=== PATIENT | female | born 1955 | race Caucasian/White ===

== ENCOUNTER 2017-02-26 18:12 | Emergency (ER) | payer SELFPAY ==
[2017-02-26 18:35] VITALS: BP 130/70
--- NOTE | 2017-02-26 19:10 | RAD ---
Indication: Laceration of the thumb. 3 views of left thumb demonstrates no radiopaque foreign body. No fracture is noted. Degenerative changes of the interphalangeal joint is noted. IMPRESSION: Degenerative changes of the interphalangeal joint without evidence of fracture.
[2017-02-26] MEDS ORDERED: Lidocaine 1% MPF* 2 ML VIAL INJ ONE (19:21)
[2017-02-26] MEDS ORDERED: Tetan/Diph/Pertus SYR(Tdap)* 0.5 ML SYR(BOOSTRIX) use SYR IM ONE (19:50)
--- NOTE | 2017-02-26 20:06 | UC ---
Laceration HPI - HPI Summary HPI Summary: PATIENT PRESENTS TO WITH CC OF LACERATION TO THE PROXIMAL PHALYNX OF THE LEFT THUMB ON A KNIFE AT WORK. SHE NOTES THE THUMB IS NOT ABLE TO STRAIGHTEN AND SHE CANNOT EXTEND THE THUMB. SHE DENIES NUMBNESS AND TINGLING. DENIES TEMPERATURE OR COLOR CHANGES. SHE IS FEELING PAIN AT THE BASE OF THE THUMB. SHE DENIES PREVIOUS INJURY TO THE THUMB. NOT ON BLOOD THINNERS. - History Of Current Complaint Chief Complaint: UCLaceration Stated Complaint: THUMB LAC Time Seen by Provider: 02/26/17 18:39 Hx Obtained From: Patient Laceration Location: Finger Mechanism Of Injury: Sharp Trauma Onset/Duration: Sudden Onset Severity: Moderate Pain Intensity: 2 Pain Scale Used: 0-10 Numeric Related History: Occupational Injury, Dominant Hand Right - Allergies/Home Medications Allergies/Adverse Reactions: Allergies Allergy/AdvReac Type Severity Reaction Status Date / Time ENVIRONMENTAL/SEASONAL Allergy STUFFY Uncoded 02/26/17 18:22 HAYFEVER Home Medications: Home Medications Escitalopram Oxalate [Lexapro] 15 mg PO 02/26/17 [History] PMH/Surg Hx/FS Hx/Imm Hx Previously Healthy: Yes Endocrine History Of: Denies: Diabetes, Thyroid Disease Cardiovascular History Of: Denies: Cardiac Disorders, Hypertension Respiratory History Of: Denies: COPD, Asthma GI/ History Of: Denies: Ulcer Cancer History Of: Denies: Breast Cancer - Surgical History Surgical History: Yes Surgery Procedure, Year, and Place: 1957 TONSILLECTOMY, [facility]. 1976 CHOLECYSTECTOMY, [facility]. 1975 BILATERAL TUBAL LIGATION, [facility] [place]. 1990 POLYP REMOVED FROM VOCAL CORD, [facility] - Family History Known Family History: Positive: Other - NONCONTRIBUTORY - Social History Occupation: Employed Full-time Lives: With Family Alcohol Use: Rare Substance Use Type: Marijuana Substance Use Comment - Amount & Last Used: OCCASIONALLY Smoking Status (MU): Light Every Day Tobacco Smoker Type: Cigarettes Amount Used/How Often: 1 PPD Review of Systems Constitutional: Negative Skin: Other - 1CM LACERATION TO THE PROXIMAL PHALYNX ENT: Negative Respiratory: Negative Cardiovascular: Negative Motor: Negative Neurovascular: Negative Musculoskeletal: Negative Neurological: Negative All Other Systems Reviewed And Are Negative: Yes Physical Exam Triage Information Reviewed: Yes Appearance: Well-Appearing, Well-Nourished Vital Signs: Initial Vital Signs Temp 98.1 F 02/26/17 18:26 Pulse 76 02/26/17 18:26 Resp 18 02/26/17 18:26 BP 130/70 02/26/17 18:26 Pulse Ox 96 02/26/17 18:26 Vital Signs Reviewed: Yes Eye Exam: Normal Eyes: Positive: Conjunctiva Clear Neck: Positive: Supple, Nontender, No Lymphadenopathy Respiratory Exam: Normal Respiratory: Positive: Chest non-tender, Lungs clear Cardiovascular Exam: Normal Cardiovascular: Positive: RRR Musculoskeletal: Positive: ROM Limited @ - FLEXION INTACT. PATIENT IS UNABLE TO EXTEND THE L THUMB FULLY. IT IS 15 DEGREES FLEXED ON ACTIVE EXTENSION Psychological: Positive: Normal Response To Family Laceration Repair - Laceration Repair 1 Description: Linear Laceration Size After Repair: Length (cm) - 1 Modified For Repair: No Type Injection: Local Anesthesia Used: 1.0% Lido Cleansing Completed Via Routine Prep: Yes Irrigation With Pressure Irrigation Device: Yes Closure Material: Sutures - 3 SUTURES PLACED Closure Method: Single Layer Suture Of: Skin Suture Type: Nylon Laceration Course/Dx - Course/Dx Course Of Treatment: XRAY SHOWS NO ACUTE FINDINGS. 3 SUTURES APPLIED WITH 1% LIDO WITH EPI. PATIENT TOLERATED WELL. SPLINT APPLIED TO KEEP IN FULL EXTENSION UNTIL FOLLOW UP WITH ORTHO. PATIENT AGREES TO FOLLOW UP IN 1-3 DAYS AND CONTINUE IN FULL EXTENSION. - Differential Dx - Laceration/Wound Differental Diagnoses: Joint Infection, Laceration, Tendon Laceration Provider Diagnoses: TENDON LACERATION Discharge - Discharge Plan Condition: Stable Disposition: HOME Patient Education Materials: Tendon Laceration (ED) Referrals: Rolf Davis MD [Medical Doctor] - Heriberto Dahl MD [Primary Care Provider] - Mary Turpin MD [Medical Doctor] - Additional Instructions: Follow up with ortho. Call tomorrow morning for appt Keep finger straight until follow up keep the suture wound open to air after 24 hours. You will need the sutures removed in 7 days.
== END 2017-02-26 20:00 | disposition home or self-care (01) ==
LOC: UCEAST 18:12
DX: S61.012A Laceration without foreign body of left thumb without damage to nail, initial encounter (principal); S56.322A Laceration of extensor or abductor muscles, fascia and tendons of left thumb at forearm level, initial encounter; W26.0XXA Contact with knife, initial encounter; Y93.9 Activity, unspecified; Y92.9 Unspecified place or not applicable; Y99.0 Civilian activity done for income or pay; Z23 Encounter for immunization; Z90.49 Acquired absence of other specified parts of digestive tract; F17.210 Nicotine dependence, cigarettes, uncomplicated
CPT/HCPCS: 12001; 99212; G0463

== ENCOUNTER 2017-03-08 09:45 | Day surgery (SDC) | payer OTHER ==
[~2017-03-08 09:45] MED LIST: Dexamethasone IV* 4 MG/ML 1 ML (4 MG) IV SLOW PU ONE; Famotidine IV* 10 MG/ML 2 ML (20 mg) IV ONE; Levalbuterol 0.63MG/3ML NEB INH ONE
[2017-03-08] MEDS ORDERED: ceFAZolin 2 GM PREMIX(*) 2 GM/50 ML BAG IVPB ONE (10:13)
[2017-03-08] MEDS ORDERED: Famotidine IV* 10 MG/ML 2 ML (20 mg) ONE (10:13)
[2017-03-08] MEDS ORDERED: Buffered Lidocaine 1% SYRIN* 5 ML/SYR SYRINGE ONE (10:14)
[2017-03-08] MEDS ORDERED: Dexamethasone IV* 4 MG/ML 1 ML (4 MG) ONE (10:14)
[2017-03-08] MEDS ORDERED: Levalbuterol 1.25MG/0.5ML NEB ONE (10:14)
[2017-03-08] MEDS ORDERED: DiMENhydriNATE IV* 50 MG/ML VIAL IV PUSH PRN (11:56)
[2017-03-08] MEDS ORDERED: Ondansetron INJ* 2 MG/ML VIAL IV PRN (11:56)
[2017-03-08] MEDS ORDERED: oxyCODONE/Acetamin 5/325 MG* TAB PO PRN (11:56)
[2017-03-08] MEDS ORDERED: Ondansetron INJ* 2 MG/ML VIAL ONE (11:59)
[2017-03-08] MEDS ORDERED: fentaNYL* 50 MCG/ML 2 ML VIAL (100 MCG VIAL) ONE (11:59)
[2017-03-08] MEDS ORDERED: Midazolam* 1 MG/ML 5 ML VIAL (5 MG) ONE (11:59)
[2017-03-08] MEDS ORDERED: Ketorolac INJ* 30 MG/ML 1 ML VIAL ONE (11:59)
[2017-03-08] MEDS ORDERED: Bupivacaine 0.25% SDV* 30 ML ONE (12:11)
[2017-03-08 13:44] VITALS: BP 116/53
--- NOTE | 2017-03-10 17:50 | OP ---
OPERATIVE REPORT: DATE OF OPERATION: 03/08/17 - AD[facility] DATE OF : 51 SURGEON: Rolf Davis MD. BLAST HOLE DRILLER: ABI Aquino. ANESTHESIOLOGIST: Dr. Al. ANESTHESIA: Local MAC. PRE-OP DIAGNOSIS: Left thumb zone T2 extensor tendon laceration. POST-OP DIAGNOSIS: Left thumb zone T2 extensor tendon laceration. OPERATIVE PROCEDURE: 1. Debridement of skin and subcutaneous tissue. 2. Repair of left thumb extensor tendon zone T2 laceration. 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 She sharpening the knife when she lacerated her thumb and extensor tendon. We had talked about risks and benefits. She had elected to proceed with surgery. ESTIMATED BLOOD LOSS: 2 mL. COMPLICATIONS: None. FINDINGS: As expected. DESCRIPTION OF PROCEDURE: Nancy was seen in the preoperative holding area. The correct side, site, and procedure were identified. We came back to the operating room where a time-out was performed and then I performed a digital block to the thumb with 0.25% Marcaine. She got some more anesthesia and then the arm was prepped and draped in the usual fashion and the formal time-out was performed. The arm was exsanguinated and then forearm tourniquet was inflated to 250 mmHg. I then began by extending the traumatic margin proximally radially and dorsal ulnar utilizing the obliquity of the laceration. I debrided the traumatized skin margins and some subcutaneous tissue going down to the peritenon. There was no large dorsal sensory nerves identified in the traumatized wound bed. I went ahead and located the laceration. There was significant scar tissue that had developed in between the two ends of the laceration tendon. This was all debrided back leaving only clean healthy tendon margins and healthy tendon bed. Once I had cleaned out all the scar tissue, I went ahead and irrigated out the wound. I then took 4-0 Prolene suture and began ulnarly and repaired the tendon using a Silfverskiold stitch. This opposed the tendon edges very nicely and provided a very excellent repair. There was no gapping at the fracture. I took the thumb through flexion and extension arc of motion. I decided just to take 5-0 Prolene on a taper and augment this with a couple of [id number] sutures. These were placed. Once I had done this, I was very satisfied with repair of the tendon. All the tissues were nice and clean and healthy, so I went ahead and irrigated out the wound. The skin was then closed with 5-0 nylon simple interrupted stitches. The wound was then dressed with Xeroform, 4x4s, sterile Webril and a thumb spica splint past the tip of the thumb was applied with MP and IP joints in extension. Tourniquet was deflated. The fingertip pinked up immediately. She was then taken to recovery room in stable condition. [id number]/[facility] #: [id number] AARON
== END 2017-03-08 13:44 | disposition home or self-care (01) ==
LOC: OREAST 09:45
PROVIDERS: ATTEND Orthopaedic Surgery Hand Surgery
DX: S66.222A Laceration of extensor muscle, fascia and tendon of left thumb at wrist and hand level, initial encounter (principal); F17.210 Nicotine dependence, cigarettes, uncomplicated; F41.8 Other specified anxiety disorders; W26.0XXA Contact with knife, initial encounter; Y93.89 Activity, other specified; Y92.190 Kitchen in other specified residential institution as the place of occurrence of the external cause; Y99.0 Civilian activity done for income or pay; M79.7 Fibromyalgia
CPT/HCPCS: A9270-GY; J0690; J1100; J1885; J2250; J2405; J3010

== ENCOUNTER → 2017-08-02 14:44 | Emergency (ER) | payer BC ==
[~2017-08-02 14:44] MED LIST changes: -Dexamethasone IV* 4 MG/ML 1 ML (4 MG) IV SLOW PU ONE; -Famotidine IV* 10 MG/ML 2 ML (20 mg) IV ONE; -Levalbuterol 0.63MG/3ML NEB INH ONE; +Lidocaine PATCH 5%* 1 PATCH TRANSDERM ONE; +Lidocaine PATCH 5%* 1 PATCH TRANSDERM SCH; +Lidocaine Patch REMOVE* 1 NOTE MISC SCH
[2017-08-02 15:00] VITALS: BP 140/67
--- NOTE | 2017-08-02 15:24 | ED ---
Lower Extremity - HPI Summary HPI Summary: Pt here w/ Rt hip pain x 2 weeks. Saw her PCP last week who ordered an XR. This reveals moderate arthritis and she has been referred to orthopedics for an appointment next week. She is under the impression she will be getting a steroid injection for bursitis in her hip. Pain is in her Rt hip and thigh along the lateral side and anterior aspect - leg shaking earlier today. Pain is now going up into her back. Pain is worse with lying down, better flexed at the hips but even this is uncomfortable at times. Reports almost falling earlier today due to pain on this side in hip - no weakness, numbness or tingling. Reports she has a h/o disc herniations and this feels different. 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 Denies fever, chills, nausea, vomiting, urinary sx, ab pain, skin changes. Has been taking acetaminophen and narcotic pain med w/o relief. Took 800mg ibuprofen today and feels best it has all day but still pretty bad - can't take much NSAID however as it upsets her stomach. - History of Current Complaint Chief Complaint: EDHipPelvisInjury Stated Complaint: RIGHT HIP PAIN Time Seen by Provider: 08/02/17 15:06 Hx Obtained From: Patient Pain Intensity: 10 - Allergies/Home Medications Allergies/Adverse Reactions: Allergies Allergy/AdvReac Type Severity Reaction Status Date / Time ENVIRONMENTAL/SEASONAL Allergy STUFFY Uncoded 03/06/17 12:18 HAYFEVER PMH/Surg Hx/FS Hx/Imm Hx Previously Healthy: Yes Endocrine/Hematology History: Denies: Hx Anticoagulant Therapy, Hx Blood Disorders, Hx Diabetes, Hx Thyroid Disease Cardiovascular History: Denies: Hx Hypertension Respiratory History: Reports: Hx Sleep Apnea, Other Respiratory Problems/ Disorders - left polyps vocal cord/larynx, surgery x 2 Denies: Hx Asthma, Hx Chronic Obstructive Pulmonary Disease (COPD) GI History: Reports: Hx Gastroesophageal Reflux Disease - resolved, stress reduction helped Denies: Hx Ulcer History: Reports: Hx Kidney Infection - acute pyelonephritis , Hx Kidney Stones - , one episode Musculoskeletal History: Reports: Hx Arthritis - neck and back, joints, Hx Back Problems - "disc issues" Denies: Hx Osteoporosis Sensory History: Reports: Hx Contacts or Glasses - wears reading glasses Denies: Hx Hearing Aid Opthamlomology History: Reports: Hx Contacts or Glasses - wears reading glasses Neurological History: Reports: Other Neuro Impairments/Disorders - piriformis syndrome, fibromyalgia Psychiatric History: Reports: Hx Anxiety, Hx Depression - SAD, controlled with medication - Cancer History Hx Chemotherapy: No Hx Radiation Therapy: No - Surgical History Surgery Procedure, Year, and Place: 1957 TONSILLECTOMY, [facility]. 1976 CHOLECYSTECTOMY, [facility]. 1975 BILATERAL TUBAL LIGATION, [facility] [place]. 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 Negative: Vomiting Negative: incontinence Musculoskeletal: Other - see HPI Neurological: Negative Negative: Weakness, Paresthesia, Numbness Positive: Anxious - states "I'm very anxious right now" All Other Systems Reviewed And Are Negative: Yes Physical Exam Triage Information Reviewed: Yes Vital Signs On Initial Exam: Initial Vitals Temp Pulse Resp BP Pulse Ox 96.8 F 76 17 140/67 98 08/02/17 14:55 08/02/17 14:55 08/02/17 14:55 08/02/17 14:55 08/02/17 14:55 Vital Signs Reviewed: Yes Appearance: Positive: Well-Appearing - resting on stretcher seated comfortably - describes pain to me but after a bit needs to stand as she's uncomfortable; after interview w/ PE, pt is up, walking around the ED, talking on the phone - not cooperative with staying in room, Well-Nourished Skin: Positive: Warm, Dry Eyes: Positive: EOMI ENT: Positive: Hearing grossly normal Respiratory/Lung Sounds: Positive: Breath Sounds Present Cardiovascular: Positive: Pulses are Symmetrical in both Upper and Lower Extremities. Negative: Leg Edema Left, Leg Edema Right Musculoskeletal: Positive: Strength/ROM Intact - ROM intact but triggers pain w / external rotation of Rt hip and flexion; strength is present but not equal d/ t pain w/ resisted movements during B/L assessment, Pain @ - Rt lateral hip w/ TTP; lumbar spine and SI joints are NTTP; pt reports QL m on Rt feels better w/ massage, Other - gait is steady at times, antalgic at others Neurological: Positive: Normal, Sensory/Motor Intact, Alert, Oriented to Person Place, Time, CN Intact II-III Psychiatric: Positive: Anxious - agitated, inpatient - Janis Coma Scale Coma Scale Total: 15 Diagnostics - Vital Signs Vital Signs Temp Pulse Resp BP Pulse Ox 08/02/17 14:55 96.8 F 76 17 140/67 98 - Laboratory Lab Statement: Any lab studies that have been ordered have been reviewed, and results considered in the medical decision making process. Lower Extremity Course/Dx - Course Course Of Treatment: Pt upset, angry, frustrated about pain in Rt hip and reports anxiety with this. Discussed that her sx may be the result of arthritis , bursitis and/or referred lumbar pathology pain. She refuses to believe this pain is anything other than bursititis and demands an injection into her bursa today. Explained we do not provide that service in the ED but would be happy to try other pain control and anxiety control methods such as toradol, diazepam and different narcotic pain medication as well as topical lidoderm pain patch. She is drining herself and does not have a ride home so explained we legally cannot. Offered treatment with.... Discussed ordering additional imaging for possible lumbar issues, more in depth hip issues with Dr. Orozco - not necessary at this time. Reviewed danger s/sx of when to return to ED w/ pt. - Diagnoses Provider Diagnoses: Right hip pain Discharge - Discharge Plan Condition: Stable Disposition: HOME Prescriptions: Diazepam TAB(*) [Valium TAB(*)] 5 mg PO TID PRN #15 tab MDD 3 PRN Reason: Pain Patient Education Materials: Lidocaine Patch (On the skin), Hip Bursitis (ED), Arthralgia (ED), Hip Pain (ED) Referrals: Heriberto Dahl MD [Primary Care Provider] - Additional Instructions: Your hip XR reveals arthritis - it was discussed that your pain could be the result of an arthritis flair up. This is typically treated with anti- inflammatories - you may use aleve 500mg every 12 hours with food or discuss use of steroids with your process control specialist if necessary. You may also have bursitis which can be treated with anti-inflammatories as mentioned above. You may benefit from an injection of steroid medication into the bursa - unfortunately this cannot be done here today. You have reported arranging an appointment tomorrow with Dr. Marin. A muscle relaxer as been prescribed for you today to aid in muscle spasm symptoms you are reporting. Remove lidoderm patch in 12 hours. *If you develop fever, chills, nausea, vomiting, abdominal pain, chest pain, leg weakness, incontinence of your bowels or bladder return to ED
== END | disposition home or self-care (01) ==
LOC: ED 14:44
DX: M25.551 Pain in right hip (principal); F41.9 Anxiety disorder, unspecified; F33.9 Major depressive disorder, recurrent, unspecified; F17.210 Nicotine dependence, cigarettes, uncomplicated
CPT/HCPCS: 99282; A9270-GY

== ENCOUNTER → 2017-10-04 11:34 | Day surgery (SDC) | payer OTHER ==
[~2017-10-04 11:34] MED LIST changes: +Bupivacaine 0.25% SDV* 30 ML ONE; +Lidocaine 1% MPF wEPI 200,000* 30 ML SDV ONE; -Lidocaine PATCH 5%* 1 PATCH TRANSDERM ONE; -Lidocaine PATCH 5%* 1 PATCH TRANSDERM SCH; -Lidocaine Patch REMOVE* 1 NOTE MISC SCH; +Sodium Bicarbonate 8.4% SYR* 10 ML SYRINGE ONE
[2017-10-04 14:57] VITALS: BP 126/61
--- NOTE | 2017-10-05 06:42 | OP ---
OPERATIVE REPORT: DATE OF OPERATION: 10/04/17 DATE OF : 51 SURGEON: Rolf Davis MD [employer] [employer] OPERATOR: ABI Cormier ANESTHESIOLOGIST: None. ANESTHESIA: Local only with 1% lidocaine with epinephrine and bicarbonate. PRE-OP DIAGNOSIS: Left thumb extensor tendon adhesions status post left thumb extensor tendon repair over the proximal phalanx back on 03/08/17. POST-OP DIAGNOSIS: Left thumb extensor tendon adhesions status post left thumb extensor tendon repai r over the proximal phalanx back on 03/08/17. OPERATIVE PROCEDURE: 1. Left thumb extensor tendon tenolysis. 2. Left thumb extensor tendon shortening. INDICATIONS: Nancy had a tendon repaired back in February. She has developed active less than passive motion. She has about 30- to 40-degree lag at the IP joint. She has quite a bit of scar tissue that has developed over the dorsum of the thumb. I talked to her about her treatment options. She had w anted to proceed with surgery. She understands the risk that she could not have full motion despite surgery; however, it is botherin g her significantly and she wants to see if she can have some improvement. ESTIMATED BLOOD LOSS: 5 mL. COMPLICATIONS: None. FINDINGS: As expected. Significant adhesions between the tendon and the bone and between the tendon and the skin over the dorsal proximal phalanx. DESCRIPTION OF PROCEDURE: Nancy was seen in the preoperative holding area. The correct side, site , and procedure were identified. We had a time-out. I then infiltrated the operative area with 1% l idocaine with epinephrine and 8.4% bicarbonate. A short time later, we came back to the operating ro om and the arm was prepped and draped in the usual fashion. A time-out was performed. I began by reopening her prior incision. It was an S-shaped incision that utilized the prior traumat ic wound. Skin flaps were retracted. The tendon was adherent to the bone. I went ahead and took my la posta blade and performed a tenolysis. This was extended proximally and distally with the la posta b lade and also with the Stoddard elevator. Once I had released all the adhesions, I had Nancy extend t he thumb. She had improvement, but still lacked about 20 degrees of terminal extension. The contrala teral IP joint comes to neutral. At this point, I took a 3-0 Ethibond suture and I placed 3 imbricat ing sutures in the extensor tendon shortening it a few millimeters. Once the 3 sutures were placed, I had her flex and extend her thumb. She was able to achieve full extension and also full flexion. I let down the drapes and I showed her this. We then irrigated out the wound. Skin was closed with 4-0 Monocryl suture. The wound was dressed with Xeroform, 4x4, sterile Webril, and I did go ahead an d place her in a thumb spica splint holding the thumb in full extension. [facility]. POSTOPERATIVE PLAN: Nancy is going to see me a week from tomorrow in the clinic. I may take the sp lint off and let her begin gentle flexion and extension. [id number]/[facility] #: [id number]
== END | disposition home or self-care (01) ==
LOC: OR 11:34
PROVIDERS: ATTEND Orthopaedic Surgery Hand Surgery
DX: S66.2 Injury of extensor muscle, fascia and tendon of thumb at wrist and hand level (principal); M65.842 Other synovitis and tenosynovitis, left hand; M19.042 Primary osteoarthritis, left hand; W45.8XXS Other foreign body or object entering through skin, sequela; F17.200 Nicotine dependence, unspecified, uncomplicated; F41.9 Anxiety disorder, unspecified
CPT/HCPCS: J2001

== ENCOUNTER → 2019-10-24 11:30 | Day surgery (SDC) | payer MEDICARE ==
[~2019-10-24 11:30] MED LIST changes: +Buffered Lidocaine 1% SYRIN* 1 ML/SYRINGE INTRADERM ONE; -Bupivacaine 0.25% SDV* 30 ML ONE; +Dexamethasone IV* 4 MG/ML 1 ML (4 MG) ONE; +EPINEPHRINE 1 MG/ML 1 ML VIAL ONE; +Famotidine IV* 10 MG/ML 2 ML (20 mg) IV ONE; +Famotidine IV* 10 MG/ML 2 ML (20 mg) ONE; -Lidocaine 1% MPF wEPI 200,000* 30 ML SDV ONE; +Lidocaine 1% w EPI 1:100,000* MDV 20 ML VIAL ONE; +Lidocaine 2% PF * 5 ML VIAL ONE; +Midazolam* 1 MG/ML 5 ML VIAL (5 MG) ONE; +Naloxone* 0.4 MG/ML 1 ML VIAL IV PRN; +Ondansetron INJ* 2 MG/ML VIAL IV PRN; +Ondansetron INJ* 2 MG/ML VIAL ONE; +Propofol* 10 MG/ML 20 ML BTL ONE; -Sodium Bicarbonate 8.4% SYR* 10 ML SYRINGE ONE; +Triamcinolone Acetonide* 40 MG/ML 1 ML VIAL ONE; +fentaNYL* 50 MCG/ML 2 ML VIAL (100 MCG VIAL) ONE
[2019-10-24] MEDS: Lactated Ringers 1000 ML Bag* 1,000 ML IV SCH ×2 (13:36→15:54)
[2019-10-24] MEDS: fentaNYL* 50 MCG/ML 2 ML VIAL (100 MCG VIAL) IV PRN ×5 (15:40→16:25)
[2019-10-24 18:05] VITALS: BP 123/87
--- NOTE | 2019-10-24 23:20 | OP ---
DATE OF OPERATION: 10/24/19 - [facility] DATE OF : 51 SURGEON: Elvin Song MD PRE-OP DIAGNOSES: Vocal cord polyp left side with a little whitish cystic structure at left vocal cord, history of smoking and previous history of vocal cord granulomas including Patricia's edema. POST-OP DIAGNOSES: Vocal cord polyp left side with a little whitish cystic structure at left vocal cord, history of smoking and previous history of vocal cord granulomas including Patricia's edema. OPERATIVE PROCEDURE: Suspension microlaryngoscopy and biopsy of left vocal cord with single flap. BRIEF HISTORY: This is a 64-year-old female presenting with large polypoidal mass at the left vocal fold with hoarseness and dysphonia, significant stridor. DESCRIPTION OF PROCEDURE: The patient was taken to the operating room, general anesthetic was given, the patient was intubated. Larynx was suspected. Microscope was utilized. 2% lidocaine with epinephrine infiltrated into the mucosa. Large Patricia's polyp was identified. Incision was made above and then unfolded. Patricia's edema was removed with suction. Portion of the epithelium was removed that was excessive and then folded back on the vocal fold. Kenalog was then infiltrated in the lamina propria next to the excision. Small pledget was applied for hemostasis. The patient was then awakened and sent to the recovery room in stable condition. Instrument and sponge counts were correct. Blood loss minimal. [id number]/[facility] #: [id number] MTDD
== END | disposition home or self-care (01) ==
LOC: OR 11:30
PROVIDERS: ATTEND Otolaryngology
DX: D14.1 Benign neoplasm of larynx (principal); F17.210 Nicotine dependence, cigarettes, uncomplicated; R49.0 Dysphonia; G47.33 Obstructive sleep apnea (adult) (pediatric); J43.9 Emphysema, unspecified; K21.9 Gastro-esophageal reflux disease without esophagitis; M19.90 Unspecified osteoarthritis, unspecified site; F41.9 Anxiety disorder, unspecified
CPT/HCPCS: 88305; 88342; J1100; J2250; J2405; J2704; J3010; J3301

== ENCOUNTER 2020-05-12 10:32 | Observation (INO) ==
[2020-05-12 12:05] LABS: ABS Basophils 0.1 10^3/ul (0-0.2); ABS Eosinophils 0.2 10^3/ul (0-0.6); ABS Lymphocytes 2.5 10^3/ul (1.0-4.8); ABS Monocytes 0.5 10^3/ul (0-0.8); Eosinophil % 2.8 %; Hematocrit 40 % (35-47); Hemoglobin 13.6 g/dL (12.0-16.0); Lymphocyte % 30.2 %; Mean Corpuscular HGB Conc 34 g/dL (31-36); Mean Corpuscular Hemoglobin 31 pg (27-31); Mean Corpuscular Volume 92 fL (80-97); Mean Platelet Volume 8.7 fL (7.4-10.4); Nucleated Red Blood Cells % 0.1; Platelet Count 236 10^3/uL (150-450); Red Blood Count 4.38 10^6 /uL (3.70-4.87); Red Cell Distribution Width 14 % (10-15); White Blood Count 8.3 10^3/uL (3.5-10.8)
[2020-05-12 12:15] LABS: Activated Partial Thrombo Time 30.6 seconds (26.0-38.0); INR 0.99 (0.82-1.09)
[2020-05-12 12:16] LABS: Urine Appearance Clear; Urine Bilirubin Negative (Negative); Urine Blood Negative (Negative); Urine Color Yellow; Urine Glucose Negative (Negative); Urine Ketones Negative (Negative); Urine Nitrite Negative (Negative); Urine Protein Negative (Negative); Urine Urobilinogen Negative (Negative)
[2020-05-12 12:31] LABS: BUN/Creatinine Ratio 23.4 (8-20); Potassium 4.6 mmol/L (3.5-5.0)
[2020-05-12 12:32] LABS: Albumin/Globulin Ratio 1.4 (1-3); Calcium 9.3 mg/dL (8.6-10.3); EGFR African American 90.8 (>60); Globulin 2.9 g/dL (2-4); HDL Cholesterol 49.2 mg/dL; Total Bilirubin 0.3 mg/dL (0.2-1.0); Total Protein 6.9 g/dL (6.4-8.9)
[2020-05-12] MEDS ORDERED: Iohexol 350 (CONTRAST) 500 ML MDV IV ONE (12:42)
[2020-05-12] MEDS ORDERED: NS 0.9% 1000 ml BAG 1,000 ML IV SCH (15:00)
[2020-05-12] MEDS: Heparin 5000 UNITS/ML 1 mL VIAL SUBCUT SCH ×3 (16:11→22:32)
[2020-05-12] MEDS: Nicotine PATCH 21 MG/24 HR PATCH TRANSDERM SCH (16:22)
[2020-05-13] MEDS: Heparin 5000 UNITS/ML 1 mL VIAL SUBCUT SCH ×3 (06:03→14:23)
[2020-05-13 06:04] LABS: HDL Cholesterol 46.3 mg/dL
[2020-05-13] MEDS: Nicotine PATCH 21 MG/24 HR PATCH TRANSDERM SCH (08:15)
[2020-05-13 13:24] VITALS: BP 138/90
== END 2020-05-13 15:07 | disposition home or self-care (01) ==
LOC: MEDTELE 10:32 → ED 10:32 → MEDTELE 14:51
PROVIDERS: ADMIT Internal Medicine; ATTEND Internal Medicine